=== PATIENT | female | born 1945 | race Caucasian/White ===

== ENCOUNTER 2016-05-23 11:05 | Emergency (ER) | payer OTHER ==
[~2016-05-23] VITALS: Ht 149.9 cm; Wt 81.8 kg
[~2016-05-23 11:05] MED LIST: AGGRENOX; AGGRENOX1 CAPSULE PO; ASPIRIN E.C.81 M1 PO; ASPIRIN-DIPYRI1 EACH PO; Advair 500/50 Diskus IH; Aggrenox PO; BENTYL10 MG PO; Bentyl PO; CIPRO500 MG PO; CLARITIN,ALAVAR10 MG PO; CORTISPORIN RIGHT EAR; DIOVAN HCT 31 TABLE1 PO; DIOVAN320 MG PO; HYDROCHLOROTHIA25 MG PO; LEVOTHYROXINE50 MCG PO; LEVOTHYROXINE75 MCG PO; LIPITOR10 MG PO; LOMOTIL TABLET1 EACH PO; LOPERAMIDE2 MG PO; LOSARTAN-HCTZ1 EAC1 PO; Levothroid,Synthroid PO; NORVASC10 MG PO; NORVASC5 MG PO; PAIN RELIEF EX500 MG PO; POLYETHYLENE GL17 GM PO; PRAVASTATIN SOD40 MG PO; Phenergan PO; SYNTHROID; SYNTHROID50 MCG PO; SYNTHROID75 MCG PO; TOPROL XL100 MG PO; TRAMADOL HCL50 MG PO; TYLENOL EXTRA500 MG PO; TYLENOL REGULA325 MG PO; TYLENOL325 M1 PO; Toprol XL PO; ULTRACET1 TABLET PO; ULTRAM50 MG PO; Ultram PO; ZOCOR40 MG PO; ZOFRAN ODT8 MG PO; ZOFRAN4 MG PO
[2016-05-23 12:07] LABS: HEMATOCRIT 37.1 % (36.0-46.0); MCH 31.1 PG (29.0-34.0); MCHC 34.2 G/DL (30.0-36.0); MCV 90.7 FL (83-99); PLATELET COUNT 302 K/uL (156-360); RBC DIS.WIDTH-CV 12.9 % (11.8-14.6); RBC DIS.WIDTH-SD 41.6 % (39-53); RED BLOOD COUNT 4.09 M/uL (3.80-5.20); WHITE BLOOD COUNT 9.8 K/uL (4.1-10.2)
[2016-05-23 12:38] LABS: CHLORIDE 104 mEq/L (99-109); POTASSIUM 4.7 mEq/L (3.7-5.4); SODIUM 134 mEq/L (136-147)
[2016-05-23 12:40] LABS: GLUCOSE 95 mg/dL (70-99)
[2016-05-23 12:41] LABS: ANION GAP 11 MEQ/L (2-14)
[2016-05-23 12:42] LABS: TOTAL BILIRUBIN 0.6 mg/dL (0.0-1.0)
[2016-05-23 12:43] LABS: ALKALINE PHOSPHATASE 56 IU/L (3-129)
[2016-05-23 12:44] LABS: GFR ESTIMATE (CALCULATED) > 59 mL/min/
[2016-05-23 12:45] LABS: UREA NITROGEN (BUN) 13 mg/dL (9-23)
[2016-05-23 14:47] VITALS: BP 102/54
== END 2016-05-23 15:33 | disposition home or self-care (01) ==
LOC: EME 11:05
PROVIDERS: Emergency Medicine
DX: R19.7 Diarrhea, unspecified (principal); J02.9 Acute pharyngitis, unspecified; R05 Cough; I10 Essential (primary) hypertension; E78.5 Hyperlipidemia, unspecified; Z79.82 Long term (current) use of aspirin
CPT/HCPCS: 74177; 80053; 85027; 87651 90; 99281; 99285; J2405; J7030

== ENCOUNTER 2016-10-24 11:05 | Emergency (ER) | payer OTHER ==
[~2016-10-24] VITALS: Ht 149.9 cm; Wt 80.9 kg
[2016-10-24 15:00] VITALS: BP 139/56
== END 2016-10-24 15:04 | disposition home or self-care (01) ==
LOC: EME 11:05
DX: S09.90XA Unspecified injury of head, initial encounter (principal); M54.2 Cervicalgia; W01.198A Fall on same level from slipping, tripping and stumbling with subsequent striking against other object, initial encounter; Z86.73 Personal history of transient ischemic attack (TIA), and cerebral infarction without residual deficits; I10 Essential (primary) hypertension; E78.5 Hyperlipidemia, unspecified; J45.909 Unspecified asthma, uncomplicated; Z79.82 Long term (current) use of aspirin
CPT/HCPCS: 70450; 72125; 99281; 99285

== ENCOUNTER 2017-04-10 16:06 | Emergency (ER) | payer OTHER ==
[~2017-04-10] VITALS: Ht 149.9 cm; Wt 82.6 kg
[2017-04-10 17:37] LABS: HEMATOCRIT 38.4 % (36.0-46.0); HEMOGLOBIN 13.4 G/DL (11.9-15.5); MCH 31.5 PG (29.0-34.0); MCHC 34.9 G/DL (30.0-36.0); MCV 90.1 FL (83-99); PLATELET COUNT 295 K/uL (156-360); RBC DIS.WIDTH-CV 12.6 % (11.8-14.6); RBC DIS.WIDTH-SD 41.7 % (39-53); RED BLOOD COUNT 4.26 M/uL (3.80-5.20)
[2017-04-10 17:45] LABS: CHLORIDE 96 mEq/L (99-109); POTASSIUM 3.2 mEq/L (3.7-5.4); SODIUM 130 mEq/L (136-147)
[2017-04-10 17:47] LABS: GLUCOSE 100 mg/dL (70-99)
[2017-04-10 17:50] LABS: CREATININE 0.7 mg/dL (0.6-1.3); GFR ESTIMATE (CALCULATED) > 59 mL/min/
[2017-04-10 17:51] LABS: UREA NITROGEN (BUN) 10 mg/dL (9-23)
[2017-04-10] MEDS ORDERED: VENTOLIN HFA18 GM IH (18:02)
[2017-04-10 18:23] VITALS: BP 145/98
== END 2017-04-10 18:23 | disposition home or self-care (01) ==
LOC: EME 16:06
PROVIDERS: Nurse Practitioner Family
DX: J06.9 Acute upper respiratory infection, unspecified (principal); J45.909 Unspecified asthma, uncomplicated; E78.5 Hyperlipidemia, unspecified; I10 Essential (primary) hypertension; Z86.73 Personal history of transient ischemic attack (TIA), and cerebral infarction without residual deficits; Z79.82 Long term (current) use of aspirin; Z88.5 Allergy status to narcotic agent; Z88.2 Allergy status to sulfonamides; Z88.0 Allergy status to penicillin
CPT/HCPCS: 71046; 80048; 85027; 87502; 94640; 99281; 99283

== ENCOUNTER 2017-07-18 02:20 | Observation (INO) | payer OTHER ==
[~2017-07-18] VITALS: Ht 149.9 cm; Wt 81.9 kg
[~2017-07-18 02:20] MED LIST changes: +VENTOLIN HFA18 GM IH
[2017-07-18 02:51] LABS: BASOPHIL (%) 0.8 % (0-1); BASOPHIL COUNT 0.1 K/uL (0-0.1); EOSINOPHIL (%) 2.2 % (0-5); EOSINOPHIL COUNT 0.2 K/uL (0-0.3); HEMATOCRIT 39.9 % (36.0-46.0); IMMATURE GRANULOCYTE (%) 0.4 % (0.0-0.7); LYMPHOCYTE (%) 45.8 % (15-42); LYMPHOCYTE COUNT 3.5 K/uL (1.0-2.8); MCH 31.1 PG (29.0-34.0); MCHC 35.1 G/DL (30.0-36.0); MCV 88.7 FL (83-99); MONOCYTE (%) 10.4 % (3-12); MONOCYTE COUNT 0.8 K/uL (0-0.8); NEUTROPHIL (%) 40.4 % (45-76); NEUTROPHIL COUNT 3.1 K/uL (1.8-6.4); PLATELET COUNT 351 K/uL (156-360); RBC DIS.WIDTH-CV 12.5 % (11.8-14.6); RBC DIS.WIDTH-SD 40.7 % (39-53); WHITE BLOOD COUNT 7.6 K/uL (4.1-10.2)
[2017-07-18 03:31] LABS: CHLORIDE 95 MEQ/L (99-109); CREATININE 0.8 MG/DL (0.6-1.3); GFR ESTIMATE (CALCULATED) > 59 mL/min/; GLUCOSE 105 mg/dL (70-99); POTASSIUM 3.2 MEQ/L (3.7-5.4); SODIUM 131 MEQ/L (136-147); UREA NITROGEN (BUN) 11 mg/dL (9-23)
[2017-07-18 03:45] LABS: AMYLASE 54 IU/L (1-118)
[2017-07-18 03:55] LABS: TROP-I INTERPRETATION NEGATIVE; TROPONIN-I 0.02 ng/mL (0.0-0.30)
[2017-07-18 03:59] LABS: LIPASE 30 U/L (1.0-51.0); SERUM ETHYL ALCOHOL < 10 mg/dL
[2017-07-18 05:44] VITALS: BP 174/77
[2017-07-18 07:29] LABS: APPEARANCE CLEAR ((CLEAR)); BILIRUBIN NEGATIVE; BLOOD SMALL; COLOR STRAW ((YELLOW)); GLUCOSE (STRIP) NEGATIVE; KETONES NEGATIVE; LEUKOCYTES NEGATIVE; NITRITE NEGATIVE; PROTEIN (STRIP) NEGATIVE; SPECIFIC GRAVITY 1.035 (1.000-1.030); UROBILINOGEN 0.2 MG/DL (0.2-1.0)
[2017-07-18 07:34] LABS: BACTERIA NONE SEEN /HPF; EPITHELIAL CELLS RARE /HPF; MUCUS NONE SEEN /LPF; RED BLOOD CELLS 0-5 /HPF (0-5); UCUL ADDED? NO; WHITE BLOOD CELLS 0-5 /HPF (0-5)
[2017-07-18 07:57] VITALS: BP 143/64
[2017-07-18 07:58] LABS: BENZODIAZEPINES, URINE SCREEN Negative (200 ng/mL)
[2017-07-18 11:46] VITALS: BP 139/63
[2017-07-18] MEDS ORDERED: B-121000 MC2 PO (12:31)
[2017-07-18] MEDS ORDERED: OMEPRAZOLE40 M1 PO (12:31)
[2017-07-18] MEDS ORDERED: PROBIOTIC1 EAC1 PO (12:31)
[2017-07-18] MEDS ORDERED: [UNRECOGNIZED DRUG - CODE] TP (12:32)
[2017-07-18] MEDS ORDERED: CLARITIN,ALAVAR10 MG PO (12:32)
[2017-07-18 16:00] VITALS: BP 129/63
[2017-07-18 18:58] LABS: HDL CHOLESTEROL 44 MG/DL (Desirable>=50); LDL CHOLESTEROL 136 mg/dL (Desirable<100); NON-HDL CHOLESTEROL 154 mg/dL (Desirable<160); TOTAL CHOLESTEROL 198 mg/dL (Desirable<200); TRIGLYCERIDES 91 MG/DL (Normal: <150)
[2017-07-18 20:05] VITALS: BP 135/62
[2017-07-18 23:37] VITALS: BP 139/69
[2017-07-19 04:32] VITALS: BP 132/61
[2017-07-19 07:58] VITALS: BP 145/63
[2017-07-19 09:34] LABS: HEMOGLOBIN A1c (GLYCOHEMOGLOB) 5.4 % (Below 5.7)
[2017-07-19 12:35] VITALS: BP 134/67
[2017-07-19] MEDS ORDERED: PRAVASTATIN SOD80 MG PO (14:35)
== END 2017-07-19 15:16 | disposition home or self-care (01) ==
LOC: EME 02:20 → EDOF 04:12 → 5SOUTH 04:12 → CANRESERV 04:30 → ENRESERV 04:30 → 5SOUTH 05:29
PROVIDERS: Emergency Medicine; Family Medicine
DX: G45.9 Transient cerebral ischemic attack, unspecified (principal); I10 Essential (primary) hypertension; Z86.73 Personal history of transient ischemic attack (TIA), and cerebral infarction without residual deficits; G43.109 Migraine with aura, not intractable, without status migrainosus; E87.6 Hypokalemia; E03.9 Hypothyroidism, unspecified; E78.5 Hyperlipidemia, unspecified; J45.909 Unspecified asthma, uncomplicated; M19.90 Unspecified osteoarthritis, unspecified site; E66.9 Obesity, unspecified; Z90.710 Acquired absence of both cervix and uterus; Z88.0 Allergy status to penicillin; Z88.2 Allergy status to sulfonamides; Z88.5 Allergy status to narcotic agent; Z88.6 Allergy status to analgesic agent; Z88.8 Allergy status to other drugs, medicaments and biological substances; Z82.49 Family history of ischemic heart disease and other diseases of the circulatory system; Z83.3 Family history of diabetes mellitus
CPT/HCPCS: 70450; 70496; 70498; 70551; 71045; 80047; 80048; 80061; 80306 90; 81003; 82150; 82948; 83036; 83690; 84484; 85025; 85610; 85730; 86850; 86870; 86900; 86901; 86905; 86920; 93005; 99281; 99285; G0378; G0480; J2405; J7050

== ENCOUNTER 2017-08-02 03:25 | Inpatient (IN) | payer OTHER ==
[~2017-08-02] VITALS: Ht 149.9 cm; Wt 81.1 kg
[~2017-08-02 03:25] MED LIST changes: +B-121000 MC2 PO; +OMEPRAZOLE40 M1 PO; +PRAVASTATIN SOD80 MG PO; +PROBIOTIC1 EAC1 PO; +[UNRECOGNIZED DRUG - CODE] TP
[2017-08-02 04:51] LABS: HEMATOCRIT 36.6 % (36.0-46.0); HEMOGLOBIN 12.8 G/DL (11.9-15.5); MCH 31.2 PG (29.0-34.0); MCV 89.3 FL (83-99); PLATELET COUNT 324 K/uL (156-360); RBC DIS.WIDTH-CV 12.7 % (11.8-14.6); RBC DIS.WIDTH-SD 41.8 % (39-53); WHITE BLOOD COUNT 8.6 K/uL (4.1-10.2)
[2017-08-02 05:00] LABS: TROP-I INTERPRETATION NEGATIVE; TROPONIN-I 0.01 ng/mL (0.0-0.30)
[2017-08-02 05:06] LABS: CHLORIDE 95 mEq/L (99-109); POTASSIUM 3.6 mEq/L (3.7-5.4); SODIUM 131 mEq/L (136-147)
[2017-08-02 05:08] LABS: GLUCOSE 112 mg/dL (70-99)
[2017-08-02 05:12] LABS: CREATININE 0.8 mg/dL (0.6-1.3); GFR ESTIMATE (CALCULATED) > 59 mL/min/
[2017-08-02 05:13] LABS: UREA NITROGEN (BUN) 12 mg/dL (9-23)
[2017-08-02] MEDS ORDERED: COZAAR100 MG PO (05:42)
[2017-08-02] MEDS ORDERED: CARTIA XT240 MG PO (05:43)
[2017-08-02] MEDS ORDERED: ATORVASTATIN CA10 MG PO (05:44)
[2017-08-02 08:15] VITALS: BP 181/73
[2017-08-02 11:37] LABS: TROP-I INTERPRETATION NEGATIVE; TROPONIN-I 0.01 ng/mL (0.0-0.30)
[2017-08-02] MEDS ORDERED: APRESOLINE25 MG PO (12:20)
[2017-08-02] MEDS ORDERED: HYGROTON25 MG PO (12:20)
[2017-08-02] MEDS ORDERED: DILTIAZEM 24HR240 MG PO (12:20)
[2017-08-02 12:59] VITALS: BP 135/61
[2017-08-02 15:33] VITALS: BP 113/63
[2017-08-02 16:41] LABS: TROP-I INTERPRETATION NEGATIVE; TROPONIN-I 0.01 ng/mL (0.0-0.30)
[2017-08-02 19:30] VITALS: BP 145/65
[2017-08-02 23:56] VITALS: BP 111/59
[2017-08-03 04:17] VITALS: BP 124/57
[2017-08-03 08:15] VITALS: BP 155/66
[2017-08-03 09:18] LABS: CHLORIDE 92 MEQ/L (99-109); CREATININE 0.8 MG/DL (0.6-1.3); GFR ESTIMATE (CALCULATED) > 59 mL/min/; GLUCOSE 100 mg/dL (70-99); POTASSIUM 4.2 MEQ/L (3.7-5.4); SODIUM 128 MEQ/L (136-147); UREA NITROGEN (BUN) 12 mg/dL (9-23)
[2017-08-03 11:20] VITALS: BP 139/64
[2017-08-03 16:01] VITALS: BP 145/63
[2017-08-03 20:00] VITALS: BP 135/92
[2017-08-03 23:54] VITALS: BP 134/62
[2017-08-04 04:28] VITALS: BP 165/70
[2017-08-04 06:26] LABS: CHLORIDE 92 MEQ/L (99-109); CREATININE 0.9 MG/DL (0.6-1.3); GFR ESTIMATE (CALCULATED) > 59 mL/min/; GLUCOSE 103 mg/dL (70-99); POTASSIUM 3.8 MEQ/L (3.7-5.4); SODIUM 126 MEQ/L (136-147); UREA NITROGEN (BUN) 14 mg/dL (9-23)
[2017-08-04 07:45] VITALS: BP 146/63
[2017-08-04 12:31] LABS: TROP-I INTERPRETATION NEGATIVE; TROPONIN-I 0.01 ng/mL (0.0-0.30)
[2017-08-04 17:07] VITALS: BP 150/63
[2017-08-04 20:00] VITALS: BP 129/58
[2017-08-05] VITALS (7 sets, daily range): BP systolic 115–183; BP diastolic 58–77
[2017-08-05 06:03] LABS: CHLORIDE 91 MEQ/L (99-109); SODIUM 126 MEQ/L (136-147)
[2017-08-05 06:08] LABS: CREATININE 0.9 MG/DL (0.6-1.3); GFR ESTIMATE (CALCULATED) > 59 mL/min/; GLUCOSE 111 mg/dL (70-99); UREA NITROGEN (BUN) 19 mg/dL (9-23)
[2017-08-05 14:40] LABS: URIC ACID 3.2 mg/dL (3.1-9.2)
[2017-08-05 18:05] LABS: CHLORIDE 91 MEQ/L (99-109); SODIUM 124 MEQ/L (136-147)
[2017-08-05 18:11] LABS: CREATININE 0.9 MG/DL (0.6-1.3); GFR ESTIMATE (CALCULATED) > 59 mL/min/; GLUCOSE 132 mg/dL (70-99); UREA NITROGEN (BUN) 18 mg/dL (9-23)
[2017-08-06 04:15] VITALS: BP 137/65
[2017-08-06 05:31] LABS: BASOPHIL (%) 0.7 % (0-1); BASOPHIL COUNT 0.1 K/uL (0-0.1); EOSINOPHIL (%) 0.9 % (0-5); EOSINOPHIL COUNT 0.1 K/uL (0-0.3); HEMATOCRIT 34.3 % (36.0-46.0); HEMOGLOBIN 12.1 G/DL (11.9-15.5); IMMATURE GRANULOCYTE (%) 0.3 % (0.0-0.7); LYMPHOCYTE COUNT 2.6 K/uL (1.0-2.8); MCH 31.6 PG (29.0-34.0); MCHC 35.3 G/DL (30.0-36.0); MCV 89.6 FL (83-99); MONOCYTE (%) 10.8 % (3-12); MONOCYTE COUNT 0.8 K/uL (0-0.8); NEUTROPHIL (%) 53.3 % (45-76); NEUTROPHIL COUNT 4.1 K/uL (1.8-6.4); PLATELET COUNT 310 K/uL (156-360); RBC DIS.WIDTH-CV 12.9 % (11.8-14.6); RBC DIS.WIDTH-SD 42.1 % (39-53); RED BLOOD COUNT 3.83 M/uL (3.80-5.20); WHITE BLOOD COUNT 7.6 K/uL (4.1-10.2)
[2017-08-06 05:53] LABS: ALBUMIN 3.8 G/DL (3.2-4.8); CHLORIDE 92 MEQ/L (99-109); CREATININE 0.8 MG/DL (0.6-1.3); GFR ESTIMATE (CALCULATED) > 59 mL/min/; GLUCOSE 103 mg/dL (70-99); PHOSPHORUS 3.6 mg/dL (2.5-4.9); POTASSIUM 4.2 MEQ/L (3.7-5.4); SODIUM 127 MEQ/L (136-147); UREA NITROGEN (BUN) 16 mg/dL (9-23); URIC ACID 3.7 mg/dL (3.1-9.2)
[2017-08-06 09:00] VITALS: BP 162/69
[2017-08-06 11:47] VITALS: BP 105/52
[2017-08-06 17:16] VITALS: BP 145/65
[2017-08-06 20:00] VITALS: BP 125/66
[2017-08-07] VITALS (8 sets, daily range): BP systolic 102–187; BP diastolic 54–72
[2017-08-07 04:56] LABS: HEMATOCRIT 38.1 % (36.0-46.0); HEMOGLOBIN 13.5 G/DL (11.9-15.5); MCH 31.7 PG (29.0-34.0); MCHC 35.4 G/DL (30.0-36.0); MCV 89.4 FL (83-99); PLATELET COUNT 369 K/uL (156-360); RBC DIS.WIDTH-CV 12.9 % (11.8-14.6); RBC DIS.WIDTH-SD 42.1 % (39-53); RED BLOOD COUNT 4.26 M/uL (3.80-5.20); WHITE BLOOD COUNT 12.8 K/uL (4.1-10.2)
[2017-08-07 05:07] LABS: PTT 28.4 SEC (25-37)
[2017-08-07 05:09] LABS: ALBUMIN 4.2 g/dL (3.2-4.8); CHLORIDE 92 mEq/L (99-109); SODIUM 125 mEq/L (136-147)
[2017-08-07 05:11] LABS: ALBUMIN 4.1 g/dL (3.2-4.8); CHLORIDE 93 mEq/L (99-109); POTASSIUM 3.9 mEq/L (3.7-5.4); SODIUM 126 mEq/L (136-147)
[2017-08-07 05:12] LABS: GLUCOSE 120 mg/dL (70-99); TOTAL PROTEIN 7.2 g/dL (6.4-8.3)
[2017-08-07 05:13] LABS: GLUCOSE 119 mg/dL (70-99)
[2017-08-07 05:14] LABS: TOTAL BILIRUBIN 0.7 mg/dL (0.0-1.0)
[2017-08-07 05:15] LABS: ALKALINE PHOSPHATASE 46 IU/L (3-129); CREATININE 0.9 mg/dL (0.6-1.3); GFR ESTIMATE (CALCULATED) > 59 mL/min/
[2017-08-07 05:16] LABS: UREA NITROGEN (BUN) 21 mg/dL (9-23)
[2017-08-07 05:17] LABS: AST (GOT) 20 IU/L (2-34); CREATININE 0.9 mg/dL (0.6-1.3); GFR ESTIMATE (CALCULATED) > 59 mL/min/; PHOSPHORUS 3.4 mg/dL (2.5-4.9)
[2017-08-07 05:18] LABS: ALT (GPT) 17 IU/L (3-49); UREA NITROGEN (BUN) 21 mg/dL (9-23)
[2017-08-07 05:21] LABS: TROP-I INTERPRETATION NEGATIVE; TROPONIN-I 0.07 ng/mL (0.0-0.30)
[2017-08-07 11:25] LABS: URIC ACID 3.6 mg/dL (3.1-9.2)
[2017-08-07 19:28] LABS: CHLORIDE 96 MEQ/L (99-109); POTASSIUM 3.8 MEQ/L (3.7-5.4); SODIUM 128 MEQ/L (136-147)
[2017-08-07 19:34] LABS: CREATININE 0.9 MG/DL (0.6-1.3); GFR ESTIMATE (CALCULATED) > 59 mL/min/; GLUCOSE 146 mg/dL (70-99); UREA NITROGEN (BUN) 19 mg/dL (9-23)
[2017-08-08 05:09] VITALS: BP 132/63
[2017-08-08 05:43] LABS: CHLORIDE 94 MEQ/L (99-109); POTASSIUM 3.9 MEQ/L (3.7-5.4); SODIUM 130 MEQ/L (136-147)
[2017-08-08 05:48] LABS: CREATININE 0.8 MG/DL (0.6-1.3); GFR ESTIMATE (CALCULATED) > 59 mL/min/; UREA NITROGEN (BUN) 15 mg/dL (9-23)
[2017-08-08 05:52] LABS: GLUCOSE 108 mg/dL (70-99)
[2017-08-08 07:50] VITALS: BP 130/61
[2017-08-08 11:03] VITALS: BP 131/58
[2017-08-08 12:56] LABS: CHLORIDE 95 MEQ/L (99-109); CREATININE 0.8 MG/DL (0.6-1.3); GFR ESTIMATE (CALCULATED) > 59 mL/min/; GLUCOSE 96 mg/dL (70-99); POTASSIUM 3.8 MEQ/L (3.7-5.4); SODIUM 132 MEQ/L (136-147); UREA NITROGEN (BUN) 16 mg/dL (9-23)
[2017-08-08 14:59] VITALS: BP 111/56
[2017-08-08 20:00] VITALS: BP 104/52; BP 130/67; BP 158/68; BP 193/73
[2017-08-09] VITALS (9 sets, daily range): BP systolic 97–146; BP diastolic 44–78
[2017-08-09 06:01] LABS: CHLORIDE 96 MEQ/L (99-109); CREATININE 1.1 MG/DL (0.6-1.3); GFR ESTIMATE (CALCULATED) 52 mL/min/; GLUCOSE 100 mg/dL (70-99); POTASSIUM 3.6 MEQ/L (3.7-5.4); SODIUM 130 MEQ/L (136-147); UREA NITROGEN (BUN) 21 mg/dL (9-23)
[2017-08-09 11:29] LABS: MAGNESIUM 2.2 mg/dl (1.3-2.7)
[2017-08-09 13:08] LABS: TROP-I INTERPRETATION NEGATIVE; TROPONIN-I 0.09 ng/mL (0.0-0.30)
[2017-08-09 20:18] LABS: TROP-I INTERPRETATION NEGATIVE; TROPONIN-I 0.11 ng/mL (0.0-0.30)
[2017-08-10] VITALS (7 sets, daily range): BP systolic 127–180; BP diastolic 59–75
[2017-08-10 00:56] LABS: TROP-I INTERPRETATION NEGATIVE; TROPONIN-I 0.08 ng/mL (0.0-0.30)
[2017-08-10 05:40] LABS: CHLORIDE 98 MEQ/L (99-109); GFR ESTIMATE (CALCULATED) > 59 mL/min/; GLUCOSE 96 mg/dL (70-99); POTASSIUM 4.3 MEQ/L (3.7-5.4); SODIUM 131 MEQ/L (136-147); UREA NITROGEN (BUN) 13 mg/dL (9-23)
[2017-08-10 05:45] LABS: CREATININE 0.6 MG/DL (0.6-1.3)
[2017-08-11] VITALS (8 sets, daily range): BP systolic 97–123; BP diastolic 46–64
[2017-08-11 05:51] LABS: CHLORIDE 93 MEQ/L (99-109); CREATININE 0.8 MG/DL (0.6-1.3); GFR ESTIMATE (CALCULATED) > 59 mL/min/; GLUCOSE 94 mg/dL (70-99); SODIUM 130 MEQ/L (136-147); UREA NITROGEN (BUN) 12 mg/dL (9-23)
[2017-08-11 08:27] LABS: MNPH Specimen Volume 1300 mL (())
[2017-08-12 04:15] VITALS: BP 122/56
[2017-08-12 05:56] LABS: CHLORIDE 94 MEQ/L (99-109); CREATININE 0.8 MG/DL (0.6-1.3); GFR ESTIMATE (CALCULATED) > 59 mL/min/; GLUCOSE 95 mg/dL (70-99); POTASSIUM 3.3 MEQ/L (3.7-5.4); SODIUM 129 MEQ/L (136-147); UREA NITROGEN (BUN) 13 mg/dL (9-23)
[2017-08-12 07:39] VITALS: BP 140/72
[2017-08-12 11:23] VITALS: BP 100/58
[2017-08-12 15:27] VITALS: BP 130/71
[2017-08-12 17:25] LABS: CHLORIDE 95 MEQ/L (99-109); CREATININE 0.8 MG/DL (0.6-1.3); GFR ESTIMATE (CALCULATED) > 59 mL/min/; GLUCOSE 95 mg/dL (70-99); SODIUM 130 MEQ/L (136-147); UREA NITROGEN (BUN) 11 mg/dL (9-23)
[2017-08-12 17:28] LABS: POTASSIUM 5.3 MEQ/L (3.7-5.4)
[2017-08-12] MEDS ORDERED: AMLODIPINE BESYL5 MG PO (18:12)
[2017-08-12] MEDS ORDERED: LORAZEPAM0.5 MG PO (18:12)
== END 2017-08-12 18:40 | disposition home or self-care (01) | DRG 641 ==
LOC: EME 03:25 → 4SOUTH 05:30 → EDOF 05:30 → ENRESERV 05:53 → 4SOUTH 07:40 → 4EAST 08-04 14:49 → 4SOUTH 08-04 14:49 → ENRESERV 08-09 13:22 → 4EAST 08-09 13:24 → ENRESERV 08-09 13:24 → 4EAST 08-10 13:29
PROVIDERS: Emergency Medicine; Family Medicine; Hospitalist; Internal Medicine; Internal Medicine Nephrology; Nurse Practitioner Family
DX: E87.1 Hypo-osmolality and hyponatremia (principal); T50.2X5A Adverse effect of carbonic-anhydrase inhibitors, benzothiadiazides and other diuretics, initial encounter; G45.9 Transient cerebral ischemic attack, unspecified; I47.2 Ventricular tachycardia; R00.1 Bradycardia, unspecified; I16.0 Hypertensive urgency; I10 Essential (primary) hypertension; R07.89 Other chest pain; E87.6 Hypokalemia; R79.89 Other specified abnormal findings of blood chemistry; E78.5 Hyperlipidemia, unspecified; E03.9 Hypothyroidism, unspecified; F41.9 Anxiety disorder, unspecified; J45.909 Unspecified asthma, uncomplicated; M19.90 Unspecified osteoarthritis, unspecified site; E66.9 Obesity, unspecified; Z68.36 Body mass index [BMI] 36.0-36.9, adult; Z86.73 Personal history of transient ischemic attack (TIA), and cerebral infarction without residual deficits; Z88.5 Allergy status to narcotic agent; Z88.0 Allergy status to penicillin; Z88.2 Allergy status to sulfonamides; Z79.82 Long term (current) use of aspirin; Z79.02 Long term (current) use of antithrombotics/antiplatelets
CPT/HCPCS: 70450; 70551; 71046; 78452; 80048; 80048 91; 80053; 80069; 82948; 83735; 83835 90; 83880; 83935; 84300; 84443; 84484; 84550; 85025; 85027; 85379; 85610; 85730; 93005; 93017; 93306; 94799; 99281; 99285; A9500; C9113; G0378; J0360; J1170; J1650; J1940; J2060; J2405; J2765; J2785; J3010; J7030; J7040; S0028

== ENCOUNTER → 2017-09-01 | Outpatient (CLI) | payer OTHER ==
[~2017-09-01] VITALS: Ht 149.9 cm; Wt 81.7 kg
[~2017-09-01] MED LIST changes: +AMLODIPINE BESYL5 MG PO; +APRESOLINE25 MG PO; +ATORVASTATIN CA10 MG PO; +CARTIA XT240 MG PO; +COZAAR100 MG PO; +DILTIAZEM 24HR240 MG PO; +HYGROTON25 MG PO; +LORAZEPAM0.5 MG PO
== END | disposition home or self-care (01) ==
LOC: AMB 09:17
PROC: B246ZZ4 Ultrasonography of Right and Left Heart, Transesophageal (ICD-10-PCS; principal; 2017-09-01)
DX: I08.3 Combined rheumatic disorders of mitral, aortic and tricuspid valves (principal); Q21.1 Atrial septal defect; Z86.73 Personal history of transient ischemic attack (TIA), and cerebral infarction without residual deficits; I10 Essential (primary) hypertension; E78.2 Mixed hyperlipidemia; E66.01 Morbid (severe) obesity due to excess calories; Z68.36 Body mass index [BMI] 36.0-36.9, adult; K21.9 Gastro-esophageal reflux disease without esophagitis
CPT/HCPCS: 93320; 93325; C8925; J2250

== ENCOUNTER 2017-09-13 11:47 | Observation (INO) | payer OTHER ==
[~2017-09-13] VITALS: Ht 149.9 cm; Wt 87.5 kg
[2017-09-13 12:36] LABS: BASOPHIL (%) 0.8 % (0-1); BASOPHIL COUNT 0.1 K/uL (0-0.1); EOSINOPHIL (%) 0.8 % (0-5); EOSINOPHIL COUNT 0.1 K/uL (0-0.3); HEMATOCRIT 37.5 % (36.0-46.0); HEMOGLOBIN 12.5 G/DL (11.9-15.5); IMMATURE GRANULOCYTE (%) 0.1 % (0.0-0.7); LYMPHOCYTE (%) 32.1 % (15-42); LYMPHOCYTE COUNT 2.5 K/uL (1.0-2.8); MCH 30.9 PG (29.0-34.0); MCHC 33.3 G/DL (30.0-36.0); MCV 92.8 FL (83-99); MONOCYTE (%) 8.4 % (3-12); MONOCYTE COUNT 0.7 K/uL (0-0.8); NEUTROPHIL (%) 57.8 % (45-76); NEUTROPHIL COUNT 4.5 K/uL (1.8-6.4); PLATELET COUNT 282 K/uL (156-360); RBC DIS.WIDTH-CV 13.4 % (11.8-14.6); RBC DIS.WIDTH-SD 45.4 % (39-53); RED BLOOD COUNT 4.04 M/uL (3.80-5.20); WHITE BLOOD COUNT 7.8 K/uL (4.1-10.2)
[2017-09-13 12:42] LABS: INTER. NORMALIZED RATIO 1.1
[2017-09-13 12:44] LABS: PTT 29.2 SEC (25-37)
[2017-09-13 12:48] LABS: CHLORIDE 107 mEq/L (99-109); POTASSIUM 3.8 mEq/L (3.7-5.4); SODIUM 140 mEq/L (136-147)
[2017-09-13 12:50] LABS: GLUCOSE 104 mg/dL (70-99)
[2017-09-13 12:54] LABS: CREATININE 0.8 mg/dL (0.6-1.3); GFR ESTIMATE (CALCULATED) > 59 mL/min/
[2017-09-13 12:55] LABS: UREA NITROGEN (BUN) 12 mg/dL (9-23)
[2017-09-13 13:02] LABS: TROP-I INTERPRETATION NEGATIVE; TROPONIN-I 0.01 ng/mL (0.0-0.30)
[2017-09-13 14:40] VITALS: BP 179/75
[2017-09-13] MEDS ORDERED: TESSALON PERLE100 MG PO (15:00)
[2017-09-13] MEDS ORDERED: DOXYCYCLINE HY100 M3 PO (15:02)
[2017-09-13 17:06] VITALS: BP 123/58
[2017-09-13 19:48] VITALS: BP 170/72
[2017-09-13 21:08] LABS: TROP-I INTERPRETATION NEGATIVE; TROPONIN-I < 0.01 ng/mL (0.0-0.30)
[2017-09-13 23:52] VITALS: BP 121/60
[2017-09-14 05:45] LABS: TROP-I INTERPRETATION NEGATIVE; TROPONIN-I < 0.01 ng/mL (0.0-0.30)
[2017-09-14 05:52] VITALS: BP 159/70
[2017-09-14 07:20] VITALS: BP 113/52
[2017-09-14] MEDS ORDERED: PANTOPRAZOLE SO40 MG PO (12:14)
== END 2017-09-14 13:34 | disposition home or self-care (01) ==
LOC: EME 11:47 → EDOF 13:41 → 4SOUTH 13:41 → EDOF 13:41 → ENRESERV 13:42 → 4SOUTH 14:31 → ENPENDDIS 09-14 12:39 → 4SOUTH 09-14 13:34
PROVIDERS: Emergency Medicine; Family Medicine
DX: R07.89 Other chest pain (principal); I16.0 Hypertensive urgency; I10 Essential (primary) hypertension; Z86.73 Personal history of transient ischemic attack (TIA), and cerebral infarction without residual deficits; E78.5 Hyperlipidemia, unspecified; E03.9 Hypothyroidism, unspecified; J45.909 Unspecified asthma, uncomplicated; E87.5 Hyperkalemia; Z79.890 Hormone replacement therapy; E66.9 Obesity, unspecified; Q21.1 Atrial septal defect; M19.90 Unspecified osteoarthritis, unspecified site; Z90.710 Acquired absence of both cervix and uterus; Z83.3 Family history of diabetes mellitus; Z82.49 Family history of ischemic heart disease and other diseases of the circulatory system; Z88.0 Allergy status to penicillin; Z88.2 Allergy status to sulfonamides; Z88.1 Allergy status to other antibiotic agents; Z88.5 Allergy status to narcotic agent; Z88.6 Allergy status to analgesic agent; Z88.8 Allergy status to other drugs, medicaments and biological substances
CPT/HCPCS: 71045; 80048; 84484; 85025; 85610; 85730; 93005; 99281; 99285; G0378; J1650

== ENCOUNTER 2017-10-01 12:16 | Emergency (ER) | payer OTHER ==
[~2017-10-01] VITALS: Ht 149.9 cm; Wt 84.3 kg
[~2017-10-01 12:16] MED LIST changes: +DOXYCYCLINE HY100 M3 PO; +PANTOPRAZOLE SO40 MG PO; +TESSALON PERLE100 MG PO
[2017-10-01 15:03] LABS: BASOPHIL (%) 1.1 % (0-1); BASOPHIL COUNT 0.1 K/uL (0-0.1); EOSINOPHIL (%) 2.6 % (0-5); EOSINOPHIL COUNT 0.2 K/uL (0-0.3); HEMATOCRIT 35.7 % (36.0-46.0); IMMATURE GRANULOCYTE (%) 0.3 % (0.0-0.7); LYMPHOCYTE (%) 43.8 % (15-42); LYMPHOCYTE COUNT 2.8 K/uL (1.0-2.8); MCH 31.3 PG (29.0-34.0); MCHC 33.6 G/DL (30.0-36.0); MONOCYTE (%) 11.4 % (3-12); MONOCYTE COUNT 0.7 K/uL (0-0.8); NEUTROPHIL (%) 40.8 % (45-76); NEUTROPHIL COUNT 2.7 K/uL (1.8-6.4); PLATELET COUNT 281 K/uL (156-360); RBC DIS.WIDTH-CV 13.6 % (11.8-14.6); RBC DIS.WIDTH-SD 46.4 % (39-53); RED BLOOD COUNT 3.84 M/uL (3.80-5.20); WHITE BLOOD COUNT 6.5 K/uL (4.1-10.2)
[2017-10-01 15:23] LABS: ALBUMIN 3.9 g/dL (3.2-4.8); CHLORIDE 105 mEq/L (99-109); POTASSIUM 4.4 mEq/L (3.7-5.4); SODIUM 140 mEq/L (136-147)
[2017-10-01 15:25] LABS: GLUCOSE 110 mg/dL (70-99); TOTAL PROTEIN 7.2 g/dL (6.4-8.3)
[2017-10-01 15:27] LABS: TOTAL BILIRUBIN 0.2 mg/dL (0.0-1.0)
[2017-10-01 15:28] LABS: TROP-I INTERPRETATION NEGATIVE; TROPONIN-I < 0.01 ng/mL (0.0-0.30)
[2017-10-01 15:29] LABS: ALKALINE PHOSPHATASE 52 IU/L (3-129); CREATININE 0.9 mg/dL (0.6-1.3); GFR ESTIMATE (CALCULATED) > 59 mL/min/
[2017-10-01 15:30] LABS: UREA NITROGEN (BUN) 8 mg/dL (9-23)
[2017-10-01 15:31] LABS: AST (GOT) 19 IU/L (2-34)
[2017-10-01 15:32] LABS: ALT (GPT) 15 IU/L (3-49)
[2017-10-01 15:39] LABS: BASE EXCESS 1.1 mEq/L (-3 to +3); BICARBONATE 25.1 mEq/L (22-26); CARBOXY HGB 2.5 % (0-5); COMMENTS - BLOOD GASES C+; DEVICE ROOM AIR; FI02 21 %; METHEMOGLOBIN 0.7 % (0-1.5); O2 SATURATION (CALCULATED) 100.1 % (95-99); PCO2 37 mm Hg (35-45); PO2 93 mm Hg (80-100); SITE RR; TOTAL RESP RATE 16 resp/min; pH 7.44 (7.35-7.45)
[2017-10-01 15:43] LABS: APPEARANCE CLEAR ((CLEAR)); BILIRUBIN NEGATIVE; BLOOD NEGATIVE; COLOR COLORLESS ((YELLOW)); GLUCOSE (STRIP) NEGATIVE; KETONES NEGATIVE; LEUKOCYTES NEGATIVE; NITRITE NEGATIVE; PROTEIN (STRIP) NEGATIVE; SPECIFIC GRAVITY 1.005 (1.000-1.030); UCUL ADDED? NO; UROBILINOGEN 0.2 MG/DL (0.2-1.0)
[2017-10-01] MEDS ORDERED: PREDNISONE20 MG PO (15:59)
[2017-10-01] MEDS ORDERED: DOXYCYCLINE MO100 MG PO (15:59)
[2017-10-01] MEDS ORDERED: TESSALON200 MG PO (15:59)
[2017-10-01 18:54] VITALS: BP 163/59
== END 2017-10-01 18:55 | disposition home or self-care (01) ==
LOC: EME 12:16
PROVIDERS: Emergency Medicine
DX: R53.1 Weakness (principal); R06.03 Acute respiratory distress; J45.909 Unspecified asthma, uncomplicated; I49.3 Ventricular premature depolarization; Z86.73 Personal history of transient ischemic attack (TIA), and cerebral infarction without residual deficits; E78.5 Hyperlipidemia, unspecified; I10 Essential (primary) hypertension; Z79.82 Long term (current) use of aspirin; Z88.2 Allergy status to sulfonamides; Z88.0 Allergy status to penicillin; K21.9 Gastro-esophageal reflux disease without esophagitis
CPT/HCPCS: 36600; 71045; 80053; 81003; 83605; 83880; 84484; 85025; 87040; 93005; 94640; 99281; 99284; J2930; J7040

== ENCOUNTER 2017-10-05 10:25 | Emergency (ER) | payer OTHER ==
[~2017-10-05] VITALS: Ht 149.9 cm; Wt 84.4 kg
[~2017-10-05 10:25] MED LIST changes: +DOXYCYCLINE MO100 MG PO; +PREDNISONE20 MG PO; +TESSALON200 MG PO
[2017-10-05 11:21] LABS: BASOPHIL (%) 0.2 % (0-1); EOSINOPHIL (%) 0.1 % (0-5); HEMATOCRIT 35.3 % (36.0-46.0); HEMOGLOBIN 12.1 G/DL (11.9-15.5); IMMATURE GRANULOCYTE (%) 0.8 % (0.0-0.7); LYMPHOCYTE (%) 34.9 % (15-42); LYMPHOCYTE COUNT 5.9 K/uL (1.0-2.8); MCH 31.3 PG (29.0-34.0); MCHC 34.3 G/DL (30.0-36.0); MCV 91.5 FL (83-99); MONOCYTE (%) 9.8 % (3-12); MONOCYTE COUNT 1.7 K/uL (0-0.8); NEUTROPHIL (%) 54.2 % (45-76); NEUTROPHIL COUNT 9.2 K/uL (1.8-6.4); PLATELET COUNT 335 K/uL (156-360); RBC DIS.WIDTH-CV 13.9 % (11.8-14.6); RBC DIS.WIDTH-SD 46.2 % (39-53); RED BLOOD COUNT 3.86 M/uL (3.80-5.20)
[2017-10-05 11:32] LABS: CHLORIDE 106 mEq/L (99-109); POTASSIUM 3.8 mEq/L (3.7-5.4); SODIUM 138 mEq/L (136-147)
[2017-10-05 11:33] LABS: GLUCOSE 98 mg/dL (70-99)
[2017-10-05 11:37] LABS: CREATININE 0.9 mg/dL (0.6-1.3); GFR ESTIMATE (CALCULATED) > 59 mL/min/
[2017-10-05 11:38] LABS: UREA NITROGEN (BUN) 18 mg/dL (9-23)
[2017-10-05 11:43] LABS: TROP-I INTERPRETATION NEGATIVE; TROPONIN-I < 0.01 ng/mL (0.0-0.30)
[2017-10-05 11:59] LABS: PTT 19.8 SEC (25-37)
[2017-10-05] MEDS ORDERED: PROTONIX40 MG PO (13:17)
[2017-10-05] MEDS ORDERED: DELTASONE20 M1 PO (13:19)
[2017-10-05] MEDS ORDERED: NEO-POLYMYXIN-H10 ML BOTH EARS (13:21)
[2017-10-05 14:32] VITALS: BP 177/74
[2017-10-05 19:15] VITALS: BP 132/63
[2017-10-05 19:18] LABS: TROP-I INTERPRETATION NEGATIVE; TROPONIN-I 0.02 ng/mL (0.0-0.30)
[2017-10-05 23:43] VITALS: BP 139/65
[2017-10-06 01:00] LABS: TROP-I INTERPRETATION NEGATIVE; TROPONIN-I 0.02 ng/mL (0.0-0.30)
[2017-10-06 03:50] VITALS: BP 150/70
[2017-10-06 05:21] LABS: HEMATOCRIT 31.8 % (36.0-46.0); HEMOGLOBIN 10.6 G/DL (11.9-15.5); MCH 31.1 PG (29.0-34.0); MCHC 33.3 G/DL (30.0-36.0); MCV 93.3 FL (83-99); PLATELET COUNT 262 K/uL (156-360); RBC DIS.WIDTH-CV 14.2 % (11.8-14.6); RBC DIS.WIDTH-SD 48.9 % (39-53); RED BLOOD COUNT 3.41 M/uL (3.80-5.20); WHITE BLOOD COUNT 8.5 K/uL (4.1-10.2)
[2017-10-06 07:28] VITALS: BP 188/74
[2017-10-06 10:34] VITALS: BP 147/65
[2017-10-06 11:21] VITALS: BP 139/64
[2017-10-06] MEDS ORDERED: APRESOLINE25 MG PO (12:34)
[2017-10-06] MEDS ORDERED: AMLODIPINE BESY10 MG PO (12:34)
== END 2017-10-06 13:30 | disposition home or self-care (01) ==
LOC: EME 10:25 → EDOF 13:10 → 4SOUTH 13:10 → EDOF 13:10 → 4SOUTH 13:10 → ENRESERV 13:21 → 4SOUTH 14:19
PROVIDERS: Emergency Medicine; Family Medicine
DX: R07.89 Other chest pain (principal); R00.2 Palpitations; I10 Essential (primary) hypertension; I49.3 Ventricular premature depolarization; E03.9 Hypothyroidism, unspecified; E78.5 Hyperlipidemia, unspecified; J45.909 Unspecified asthma, uncomplicated; D72.829 Elevated white blood cell count, unspecified; M54.9 Dorsalgia, unspecified; R51 Headache; R06.00 Dyspnea, unspecified; Q21.1 Atrial septal defect; Z86.73 Personal history of transient ischemic attack (TIA), and cerebral infarction without residual deficits; E66.9 Obesity, unspecified; Z68.37 Body mass index [BMI] 37.0-37.9, adult; Z90.710 Acquired absence of both cervix and uterus; Z88.0 Allergy status to penicillin; Z88.2 Allergy status to sulfonamides
CPT/HCPCS: 71045; 80048; 84484; 85025; 85027; 85610; 85730; 93005; 99281; 99284; G0378; J1650